=== PATIENT | male | born 1965 | race Caucasian/White ===

== ENCOUNTER 2017-08-06 09:54 | Inpatient (IN) | payer MEDICAID ==
[2017-08-06] VITALS (56 sets, daily range): BP systolic 68–110; BP diastolic 31–64
[~2017-08-06] VITALS: Ht 172.7 cm; Wt 69.6 kg
[2017-08-06] MEDS ORDERED: INSULIN REGULAR (HUMULIN R) 300UNITS/3ML SUBCUT ONE (10:15)
[2017-08-06] MEDS ORDERED: VANCOMYCIN 1 G PREMIX 200 ML IV ONE (10:15)
[2017-08-06] MEDS ORDERED: PIPERACILLIN/TAZ 3.375G PREMIX 50 ML IV ONE (10:15)
[2017-08-06] MEDS ORDERED: SODIUM CHLORIDE 0.9% 1000ML BAG (SEPSIS BOLUS) IV ONE (10:15)
[2017-08-06 10:54] LABS: BG BASE EXCESS -33.7 mmol/L (-2.0-2.0); BG CARBOXYHEMOGLOBIN 0.9 % (0.5-1.5); BG DEOXYHEMOGLOBIN 1.4 % (0.0-5.0); BG FRACTION INSPIRED OXYGEN 28; BG HCO3 ACT 1.4 mmol/L (22.0-26.0); BG METHEMOGLOBIN 0.3 % (0.0-1.5); BG OXYGEN SATURATION 98.6 % (92.0-98.5); BG OXYHEMOGLOBIN 97.4 % (94.0-97.0); BG PCO2 10.8 mmHg (35.0-45.0); BG PH 6.734 (7.350-7.450); BG PO2 170.5 mmHg (75.0-100.0); BG SAMPLE SITE RIGHT BRACHIAL; BG TOTAL HEMOGLOBIN 14.4 g/dL (12.0-18.0); BG VENT MODE NASAL CANNULA
[2017-08-06] MEDS ORDERED: SODIUM BICARBONATE 8.4% 1 MEQ/ML 50ML SYR IV ONE ×3 (11:00→11:45)
[2017-08-06 11:04] LABS: HEMOGLOBIN. 14.7 g/dL (14.0-18.0); MEAN CORPUSCULAR HEMOGLOBIN 28.7 pg (28.0-32.0); MEAN CORPUSCULAR VOLUME 91.8 fL (80.0-94.0); MEAN PLATELET VOLUME 9.1 fl (7.4-10.4); PLATELET 183 x1000/uL (130-400); RED BLOOD CELL COUNT 5.12 mill/uL (4.7-6.1); RED CELL DISTRIBUTION WIDTH 17.2 % (11.6-14.6)
[2017-08-06 11:05] LABS: CHLORIDE 90 mEq/L (98-107)
[2017-08-06 11:10] LABS: ETHANOL BLOOD < 10 mg/dL
[2017-08-06] MEDS ORDERED: LORAZEPAM 2MG/ML CPJ IV ONE (11:15)
[2017-08-06] MEDS ORDERED: LORAZEPAM 2MG/ML CPJ ONE (11:21)
[2017-08-06 11:22] LABS: PARTIAL THROMBOPLASTIN TIME 38.1 sec (23.4-31.0); PROTHROMBIN TIME 10.3 sec (9.4-11.6)
[2017-08-06 11:29] LABS: PLATELET ESTIMATE NORMAL
[2017-08-06] MEDS ORDERED: VECURONIUM BROMIDE 10 MG/VIAL IV ONE ×2 (11:30→14:19)
[2017-08-06] MEDS ORDERED: ETOMIDATE 2MG/ML 10ML VIAL IV ONE ×2 (11:30→14:19)
[2017-08-06] MEDS ORDERED: PROPOFOL 200MG/20ML VIAL IV ONE (11:30)
[2017-08-06] MEDS ORDERED: SODIUM CHLORIDE 0.9% 1,000 ML IV STA (11:42)
[2017-08-06] MEDS ORDERED: ALBUTEROL (0.083%) 2.5MG/3ML NEB HHN ONE (11:45)
[2017-08-06] MEDS ORDERED: MIDAZOLAM HCL 50 MG in DEXTROSE 5% WATER 40 ML IV ONE ×2 (11:45→12:30)
[2017-08-06] MEDS ORDERED: SODIUM POLYSTYRENE SULFONATE 15 G/60 ML BOT NG ONE (11:45)
[2017-08-06] MEDS ORDERED: NOREPINEPHRINE 4 MG in DEXT 5% WATER 246 ML IV ONE ×2 (11:45→12:15)
[2017-08-06] MEDS ORDERED: INSULIN REGULAR (DRIP) 100 UNITS in SODIUM CHLORIDE 0.9% 100 ML IV NR (12:00)
[2017-08-06 12:05] LABS: BETA HYDROXYBUTYRATE 17.3 mMol/L (0.0-0.3)
[2017-08-06 12:23] LABS: CLARITY URINE CLEAR (CLEAR); COLOR URINE YELLOW (YELLOW); KETONES URINE 2+ (NEGATIVE); LEUKOCYTE ESTERASE URINE NEGATIVE (NEGATIVE); NITRITE URINE NEGATIVE (NEGATIVE); OCCULT BLOOD URINE 2+ (NEGATIVE); PROTEIN URINE 2+ (NEGATIVE); SPECIFIC GRAVITY URINE 1.021 (1.005-1.030)
[2017-08-06 12:30] LABS: BG CARBOXYHEMOGLOBIN 0.3 % (0.5-1.5); BG DEOXYHEMOGLOBIN 0.7 % (0.0-5.0); BG METHEMOGLOBIN 0.3 % (0.0-1.5); BG OXYGEN SATURATION 99.3 % (92.0-98.5); BG OXYHEMOGLOBIN 98.7 % (94.0-97.0); BG PCO2 40.1 mmHg (35.0-45.0); BG PH < 6.680 (7.350-7.450); BG PO2 594.2 mmHg (75.0-100.0); BG SAMPLE SITE RIGHT BRACHIAL; BG TIDAL VOLUME(mL) 500 mL; BG TOTAL HEMOGLOBIN 13.8 g/dL (12.0-18.0); BG VENT MODE VENT - A/C; BG VENT RATE 10 set
[2017-08-06 12:33] LABS: *BENZODIAZEPINES SCREEN URINE NEGATIVE (NEGATIVE)
[2017-08-06 12:34] LABS: *AMPHETAMINES SCREEN URINE NEGATIVE (NEGATIVE); CANNABINOID URINE SCREEN NEGATIVE (NEGATIVE); OPIATES URINE SCREEN NEGATIVE (NEGATIVE); PHENCYCLIDINE URINE SCREEN NEGATIVE (NEGATIVE)
[2017-08-06 12:35] LABS: METHADONE URINE SCREEN NEGATIVE (NEGATIVE)
[2017-08-06 12:37] LABS: *BARBITURATES SCREEN URINE NEGATIVE (NEGATIVE); *COCAINE SCREEN URINE NEGATIVE (NEGATIVE)
[2017-08-06] MEDS ORDERED: IPRATROPIUM/ALBUTEROL 0.5-3(2.5)MG/3ML NEB INH PRN (12:45)
[2017-08-06] MEDS ORDERED: MAGNESIUM/ALUMINUM HYDROXIDE/SIMETHICONE 30ML UDC PO PRN (12:45)
[2017-08-06] MEDS ORDERED: CLONIDINE 0.1MG TABLET PO PRN (12:45)
[2017-08-06] MEDS ORDERED: INSULIN REGULAR (DRIP) 100 UNITS in SODIUM CHLORIDE 0.9% 100 ML IV SCH (12:45)
[2017-08-06] MEDS ORDERED: GUAIFENESIN 200MG/10ML SUGAR FREE UDC PO PRN (12:45)
[2017-08-06] MEDS ORDERED: LEVETIRACETAM 500MG PREMIX 100 ML IV ONE (12:45)
[2017-08-06] MEDS ORDERED: HYDROCODONE/ACETAMINOPHEN 5/325MG TABLET PO PRN (12:45)
[2017-08-06] MEDS ORDERED: LORAZEPAM 2MG/ML CPJ IV PRN (12:45)
[2017-08-06] MEDS ORDERED: ONDANSETRON HCL 4MG/2ML VIAL IV PRN (12:45)
[2017-08-06] MEDS ORDERED: DOCUSATE SODIUM 100MG CAPSULE PO PRN (12:45)
[2017-08-06] MEDS ORDERED: ACETAMINOPHEN 325MG TABLET PO PRN (12:45)
[2017-08-06] MEDS ORDERED: MORPHINE SULFATE 4 MG/ML CPJ (NOT FOR IM USE) IV PRN (12:49)
[2017-08-06] MEDS ORDERED: SODIUM BICARBONATE 4% (2.4MEQ) 5ML VIAL IV ONE ×2 (13:16→18:24)
[2017-08-06] MEDS ORDERED: LIDOCAINE HCL/PF 1% 10 MG/ML 5ML VIAL ONE (13:16)
[2017-08-06] MEDS: INSULIN REGULAR (DRIP) 100 UNITS in SODIUM CHLORIDE 0.9% 100 ML IV SCH ×2 (14:25→22:47)
[2017-08-06] MEDS ORDERED: SODIUM CHLORIDE 0.45% 1,000 ML IV SCH (14:30)
[2017-08-06] MEDS ORDERED: DEXTROSE 50% WATER 50ML SYRINGE IV PRN ×2 (14:45)
[2017-08-06] MEDS: BLOOD SUGAR DIAGNOSTIC STRIP TEST SCH ×9 (14:46→23:45)
[2017-08-06] MEDS ORDERED: PANTOPRAZOLE SODIUM 40 MG/VIAL IV ONE (15:00)
[2017-08-06] MEDS ORDERED: ENOXAPARIN 30MG/0.3ML SYR SUBCUT SCH (15:00)
[2017-08-06] MEDS ORDERED: PROPOFOL 10MG/ML 100ML 100 ML IV PRN (15:00)
[2017-08-06 15:37] LABS: BG BASE EXCESS -28.8 mmol/L (-2.0-2.0); BG CARBOXYHEMOGLOBIN 0.1 % (0.5-1.5); BG DEOXYHEMOGLOBIN 0.9 % (0.0-5.0); BG FRACTION INSPIRED OXYGEN 70; BG METHEMOGLOBIN 0.1 % (0.0-1.5); BG OXYGEN SATURATION 99.1 % (92.0-98.5); BG OXYHEMOGLOBIN 98.9 % (94.0-97.0); BG PCO2 23.1 mmHg (35.0-45.0); BG PO2 330.7 mmHg (75.0-100.0); BG SAMPLE SITE LEFT BRACHIAL; BG TIDAL VOLUME(mL) 550 mL; BG TOTAL HEMOGLOBIN 14.4 g/dL (12.0-18.0); BG VENT MODE VENT - A/C; BG VENT RATE 28 set
[2017-08-06] MEDS ORDERED: LEVOFLOXACIN 500MG PREMIX 100 ML IV NR (16:00)
[2017-08-06] MEDS ORDERED: SODIUM BICARBONATE 8.4% 1 MEQ/ML 50ML SYR IV NR ×3 (16:00→18:15)
[2017-08-06] MEDS ORDERED: INSULIN REGULAR (HUMULIN R) 300UNITS/3ML IV NR (16:45)
[2017-08-06] MEDS: PANTOPRAZOLE SODIUM 40 MG/VIAL IV SCH (16:59)
[2017-08-06] MEDS ORDERED: SODIUM BICARBONATE 5MEQ SYR 100 MEQ in DEXTROSE 5% WATER 1,000 ML IV SCH (17:00)
[2017-08-06] MEDS: CEFEPIME 2,000 MG in DEXT 5% WATER 100 ML IV SCH (17:01)
[2017-08-06] MEDS ORDERED: PHENYLEPHRINE 20 MG in DEXT 5% WATER 248 ML IV PRN (17:30)
[2017-08-06 17:54] LABS: CHLORIDE 98 mEq/L (98-107)
[2017-08-06] MEDS ORDERED: METRONIDAZOLE 500 MG PREMIX 100 ML IV SCH (18:00)
[2017-08-06] MEDS ORDERED: LIDOCAINE HCL/PF 1% 10 MG/ML 30ML VIAL ONE (18:23)
[2017-08-06] MEDS ORDERED: POTASSIUM CHLORIDE INJ 40 MEQ in DEXT 5% WATER 250 ML IV ONE (18:45)
[2017-08-06] MEDS ORDERED: NON FORMULARY PATIENT HOME MED EA XX SCH (19:00)
[2017-08-06] MEDS: NOREPINEPHRINE 16 MG in DEXT 5% WATER 234 ML IV PRN (19:03)
[2017-08-06 19:08] LABS: BG BASE EXCESS -24.6 mmol/L (-2.0-2.0); BG CARBOXYHEMOGLOBIN 0.9 % (0.5-1.5); BG DEOXYHEMOGLOBIN 2.7 % (0.0-5.0); BG FRACTION INSPIRED OXYGEN 30; BG HCO3 ACT 5.8 mmol/L (22.0-26.0); BG METHEMOGLOBIN 0.2 % (0.0-1.5); BG OXYGEN SATURATION 97.3 % (92.0-98.5); BG OXYHEMOGLOBIN 96.2 % (94.0-97.0); BG PH 6.984 (7.350-7.450); BG PO2 108.1 mmHg (75.0-100.0); BG SAMPLE SITE LEFT BRACHIAL; BG TIDAL VOLUME(mL) 550 mL; BG TOTAL HEMOGLOBIN 14.4 g/dL (12.0-18.0); BG VENT MODE VENT - A/C; BG VENT RATE 28 set
[2017-08-06] MEDS: IPRATROPIUM/ALBUTEROL 0.5-3(2.5)MG/3ML NEB HHN SCH (19:55)
[2017-08-06] MEDS ORDERED: POTASSIUM CHLORIDE INJ 40 MEQ in DEXT 5% WATER 250 ML IV NR (20:00)
[2017-08-06] MEDS ORDERED: MAGNESIUM 2 G PREMIX 50 ML IV NR (20:00)
[2017-08-06] MEDS: KCL 20MEQ/100ML PREMIX 100 ML IV NR ×2 (20:27→22:49)
[2017-08-06] MEDS: SODIUM BICARBONATE 150 MEQ in WATER FOR INJECTION,STERILE 850 ML IV SCH (20:31)
[2017-08-06] MEDS: VASOPRESSIN 10 UNIT in SODIUM CHLORIDE 0.9% 99.5 ML IV PRN (20:58)
[2017-08-06] MEDS ORDERED: NA PHOS,M-B/NA PHOS,DI-BA ENEMA 118ML PR PRN (21:00)
[2017-08-06] MEDS: PHENYLEPHRINE 80 MG in DEXT 5% WATER 492 ML IV PRN (21:19)
[2017-08-07] VITALS (94 sets, daily range): BP systolic 77–115; BP diastolic 36–71
[2017-08-07] MEDS: METRONIDAZOLE 500 MG PREMIX 100 ML IV SCH ×4 (00:05→19:58)
[2017-08-07] MEDS: VASOPRESSIN 10 UNIT in SODIUM CHLORIDE 0.9% 99.5 ML IV PRN ×5 (00:26→19:38)
[2017-08-07] MEDS: BLOOD SUGAR DIAGNOSTIC STRIP TEST SCH ×24 (00:45→23:51)
[2017-08-07] MEDS: KCL 20MEQ/100ML PREMIX 100 ML IV NR ×2 (01:10→02:51)
[2017-08-07 01:17] LABS: CHLORIDE 101 mEq/L (98-107)
[2017-08-07] MEDS: NOREPINEPHRINE 16 MG in DEXT 5% WATER 234 ML IV PRN ×3 (01:46→23:52)
[2017-08-07] MEDS: IPRATROPIUM/ALBUTEROL 0.5-3(2.5)MG/3ML NEB HHN SCH ×3 (01:46→20:35)
[2017-08-07] MEDS ORDERED: KCL 20MEQ/100ML PREMIX 100 ML IV ONE ×3 (02:15)
[2017-08-07] MEDS: SODIUM BICARBONATE 150 MEQ in WATER FOR INJECTION,STERILE 850 ML IV SCH (04:08)
[2017-08-07] MEDS: KCL 20MEQ/100ML PREMIX 100 ML IV SCH ×4 (04:09→22:14)
[2017-08-07] MEDS: INSULIN REGULAR (DRIP) 100 UNITS in SODIUM CHLORIDE 0.9% 100 ML IV SCH ×3 (05:08→19:57)
[2017-08-07 06:08] LABS: CHLORIDE 102 mEq/L (98-107)
[2017-08-07 06:21] LABS: CREATINE KINASE 279 IU/L (39-308)
[2017-08-07 06:22] LABS: T4 FREE 1.27 ng/dL (0.76-1.46)
[2017-08-07 06:23] LABS: HDL CHOLESTEROL 43 mg/dL (40-59); LDL CHOLESTEROL 41 mg/dL (5-100)
[2017-08-07 06:27] LABS: PHOSPHORUS < 0.1 mg/dL (2.5-4.9)
[2017-08-07] MEDS: PHENYLEPHRINE 80 MG in DEXT 5% WATER 492 ML IV PRN (06:30)
[2017-08-07] MEDS ORDERED: WATER IV NR (08:30)
[2017-08-07] MEDS ORDERED: POTASSIUM PHOS M BASIC D BASIC IV NR (08:30)
[2017-08-07] MEDS ORDERED: DEXT 5% IV NR (08:30)
[2017-08-07] MEDS ORDERED: ASPIRIN 81MG EC TABLET PO SCH (09:00)
[2017-08-07] MEDS: DEXT 5%/0.45% NACL KCL 20MEQ/L 1,000 ML IV SCH ×2 (09:10→15:26)
[2017-08-07 09:13] LABS: BG BASE EXCESS 7.9 mmol/L (-2.0-2.0); BG CARBOXYHEMOGLOBIN 0.3 % (0.5-1.5); BG DEOXYHEMOGLOBIN 4.7 % (0.0-5.0); BG FRACTION INSPIRED OXYGEN 30; BG HCO3 ACT 28.9 mmol/L (22.0-26.0); BG METHEMOGLOBIN 0.3 % (0.0-1.5); BG OXYGEN SATURATION 95.3 % (92.0-98.5); BG OXYHEMOGLOBIN 94.7 % (94.0-97.0); BG PCO2 28.7 mmHg (35.0-45.0); BG PH 7.621 (7.350-7.450); BG PO2 60.1 mmHg (75.0-100.0); BG SAMPLE SITE RIGHT BRACHIAL; BG TIDAL VOLUME(mL) 550 mL; BG VENT MODE VENT - A/C; BG VENT RATE 28 set
[2017-08-07] MEDS: PANTOPRAZOLE SODIUM 40 MG/VIAL IV SCH (09:17)
[2017-08-07] MEDS ORDERED: ALBUMIN HUMAN 25GM/100ML (25%) IV NR (10:00)
[2017-08-07 10:13] LABS: HEMATOCRIT. 30.8 % (42.0-52.0); HEMOGLOBIN. 11.1 g/dL (14.0-18.0); MEAN CORPUSCULAR HEMOGLOBIN 28.9 pg (28.0-32.0); MEAN CORPUSCULAR VOLUME 80.4 fL (80.0-94.0); RED BLOOD CELL COUNT 3.84 mill/uL (4.7-6.1); RED CELL DISTRIBUTION WIDTH 19.2 % (11.6-14.6)
[2017-08-07 10:51] LABS: NUCLEATED RED BLOOD CELLS 1 /100 WBC
[2017-08-07 10:52] LABS: PLATELET ESTIMATE MARKEDLY DECREASED
[2017-08-07 10:56] LABS: PLATELET 32 x1000/uL (130-400)
[2017-08-07] MEDS ORDERED: LEVOFLOXACIN 250MG PREMIX 50 ML IV SCH (12:00)
[2017-08-07 12:14] LABS: BG BASE EXCESS 2.7 mmol/L (-2.0-2.0); BG CARBOXYHEMOGLOBIN 0.3 % (0.5-1.5); BG DEOXYHEMOGLOBIN 2.9 % (0.0-5.0); BG FRACTION INSPIRED OXYGEN 45; BG HCO3 ACT 24.5 mmol/L (22.0-26.0); BG METHEMOGLOBIN 0.1 % (0.0-1.5); BG OXYGEN SATURATION 97.1 % (92.0-98.5); BG OXYHEMOGLOBIN 96.7 % (94.0-97.0); BG PH 7.545 (7.350-7.450); BG PO2 91.7 mmHg (75.0-100.0); BG SAMPLE SITE RIGHT BRACHIAL; BG TIDAL VOLUME(mL) 550 mL; BG TOTAL HEMOGLOBIN 11.6 g/dL (12.0-18.0); BG VENT MODE VENT - A/C; BG VENT RATE 18 set
[2017-08-07] MEDS: FENTANYL CITRATE/PF 500 MCG in SODIUM CHLORIDE 0.9% 40 ML IV PRN ×2 (12:32→23:56)
[2017-08-07] MEDS: MIDAZOLAM HCL 50 MG in DEXTROSE 5% WATER 40 ML IV PRN ×2 (12:32→19:38)
[2017-08-07 14:36] LABS: PHOSPHORUS 0.5 mg/dL (2.5-4.9)
[2017-08-07] MEDS ORDERED: MAGNESIUM 2 G PREMIX 50 ML IV NR (15:30)
[2017-08-07] MEDS: CEFEPIME 2,000 MG in DEXT 5% WATER 100 ML IV SCH (16:23)
[2017-08-07] MEDS ORDERED: SODIUM PHOS,M-BASIC-D-BASIC 30 MM in DEXT 5% WATER 500 ML IV NR (17:30)
[2017-08-07 19:28] LABS: PHOSPHORUS 1.4 mg/dL (2.5-4.9)
[2017-08-07 20:22] LABS: BG BASE EXCESS 3.7 mmol/L (-2.0-2.0); BG CARBOXYHEMOGLOBIN 0.3 % (0.5-1.5); BG DEOXYHEMOGLOBIN 3.5 % (0.0-5.0); BG FRACTION INSPIRED OXYGEN 45; BG HCO3 ACT 25.9 mmol/L (22.0-26.0); BG METHEMOGLOBIN 0.1 % (0.0-1.5); BG OXYGEN SATURATION 96.5 % (92.0-98.5); BG OXYHEMOGLOBIN 96.1 % (94.0-97.0); BG PCO2 30.9 mmHg (35.0-45.0); BG PH 7.541 (7.350-7.450); BG PO2 79.1 mmHg (75.0-100.0); BG SAMPLE SITE RIGHT BRACHIAL; BG TIDAL VOLUME(mL) 550 mL; BG TOTAL HEMOGLOBIN 10.8 g/dL (12.0-18.0); BG VENT MODE VENT - A/C; BG VENT RATE 12 set
[2017-08-07] MEDS ORDERED: KCL 20MEQ/100ML PREMIX 100 ML IV SCH ×2 (22:00)
[2017-08-07] MEDS: DEXT 5%/0.45% NACL KCL 40MEQ/L 1,000 ML IV SCH (22:13)
[2017-08-08] VITALS (92 sets, daily range): BP systolic 81–132; BP diastolic 56–94
[2017-08-08] MEDS: VASOPRESSIN 10 UNIT in SODIUM CHLORIDE 0.9% 99.5 ML IV PRN ×4 (00:25→15:54)
[2017-08-08] MEDS: INSULIN REGULAR (DRIP) 100 UNITS in SODIUM CHLORIDE 0.9% 100 ML IV SCH ×3 (00:26→15:52)
[2017-08-08] MEDS: KCL 20MEQ/100ML PREMIX 100 ML IV SCH ×3 (00:39→10:27)
[2017-08-08] MEDS: BLOOD SUGAR DIAGNOSTIC STRIP TEST SCH ×23 (00:40→23:07)
[2017-08-08] MEDS ORDERED: POTASSIUM PHOS,M-BASIC-D-BASIC 30 MMOL in DEXT 5% WATER 500 ML IV NR (02:00)
[2017-08-08] MEDS: IPRATROPIUM/ALBUTEROL 0.5-3(2.5)MG/3ML NEB HHN SCH ×4 (02:01→20:14)
[2017-08-08] MEDS: METRONIDAZOLE 500 MG PREMIX 100 ML IV SCH ×3 (03:14→20:54)
[2017-08-08] MEDS: MIDAZOLAM HCL 50 MG in DEXTROSE 5% WATER 40 ML IV PRN ×2 (03:15→14:00)
[2017-08-08] MEDS: DEXT 5%/0.45% NACL KCL 40MEQ/L 1,000 ML IV SCH ×3 (04:54→23:12)
[2017-08-08 05:41] LABS: MEAN CORPUSCULAR VOLUME 77.9 fL (80.0-94.0); MEAN PLATELET VOLUME 8.2 fl (7.4-10.4); RED BLOOD CELL COUNT 3.73 mill/uL (4.7-6.1); RED CELL DISTRIBUTION WIDTH 20.1 % (11.6-14.6)
[2017-08-08 06:12] LABS: CHLORIDE 98 mEq/L (98-107)
[2017-08-08 06:18] LABS: PHOSPHORUS 2.2 mg/dL (2.5-4.9)
[2017-08-08] MEDS ORDERED: POTASSIUM CHLORIDE 20MEQ/PACKET NG SCH (06:45)
[2017-08-08] MEDS ORDERED: POTASSIUM CHLORIDE INJ 40 MEQ in DEXT 5% WATER 250 ML IV ONE (07:15)
[2017-08-08 07:18] LABS: PLATELET 25 x1000/uL (130-400)
[2017-08-08 07:19] LABS: HEMOGLOBIN. 10.6 g/dL (14.0-18.0)
[2017-08-08 07:20] LABS: MEAN CORPUSCULAR HEMOGLOBIN 28.4 pg (28.0-32.0)
[2017-08-08] MEDS ORDERED: POTASSIUM PHOS,M-BASIC-D-BASIC 30 MMOL in DEXT 5% WATER 500 ML IV SCH (08:00)
[2017-08-08 08:59] LABS: BG BASE EXCESS 3.7 mmol/L (-2.0-2.0); BG CARBOXYHEMOGLOBIN 0.2 % (0.5-1.5); BG DEOXYHEMOGLOBIN 1.9 % (0.0-5.0); BG FRACTION INSPIRED OXYGEN 50; BG METHEMOGLOBIN 0.3 % (0.0-1.5); BG OXYGEN SATURATION 98.1 % (92.0-98.5); BG OXYHEMOGLOBIN 97.6 % (94.0-97.0); BG PCO2 36.2 mmHg (35.0-45.0); BG PH 7.491 (7.350-7.450); BG PO2 152.2 mmHg (75.0-100.0); BG SAMPLE SITE RIGHT RADIAL; BG TIDAL VOLUME(mL) 550 mL; BG TOTAL HEMOGLOBIN 10.5 g/dL (12.0-18.0); BG VENT MODE VENT - A/C; BG VENT RATE 12 set
[2017-08-08 09:25] LABS: PLATELET ESTIMATE MARKEDLY DECREASED
[2017-08-08] MEDS ORDERED: ALBUMIN HUMAN 25GM/100ML (25%) IV SCH (09:30)
[2017-08-08] MEDS: FENTANYL CITRATE/PF 500 MCG in SODIUM CHLORIDE 0.9% 40 ML IV PRN ×2 (11:41→22:17)
[2017-08-08] MEDS: CEFEPIME 2,000 MG in DEXT 5% WATER 100 ML IV SCH (18:45)
[2017-08-08] MEDS ORDERED: CALCIUM GLUCONATE 1,000 MG in DEXT 5% WATER 90 ML IV NR (19:00)
[2017-08-08 19:50] LABS: PHOSPHORUS 4.8 mg/dL (2.5-4.9)
[2017-08-09] VITALS (79 sets, daily range): BP systolic 86–119; BP diastolic 53–86
[2017-08-09] MEDS: VASOPRESSIN 10 UNIT in SODIUM CHLORIDE 0.9% 99.5 ML IV PRN (00:06)
[2017-08-09] MEDS: BLOOD SUGAR DIAGNOSTIC STRIP TEST SCH ×15 (00:06→22:27)
[2017-08-09] MEDS: IPRATROPIUM/ALBUTEROL 0.5-3(2.5)MG/3ML NEB HHN SCH ×4 (01:46→20:41)
[2017-08-09] MEDS: MIDAZOLAM HCL 50 MG in DEXTROSE 5% WATER 40 ML IV PRN ×3 (03:39→20:08)
[2017-08-09] MEDS: DEXT 5%/0.45% NACL KCL 40MEQ/L 1,000 ML IV SCH ×2 (03:40→10:52)
[2017-08-09] MEDS: METRONIDAZOLE 500 MG PREMIX 100 ML IV SCH ×3 (04:27→20:22)
[2017-08-09 05:57] LABS: HEMATOCRIT. 26.8 % (42.0-52.0); HEMOGLOBIN. 9.7 g/dL (14.0-18.0); MEAN CORPUSCULAR VOLUME 80.4 fL (80.0-94.0); MEAN PLATELET VOLUME 8.5 fl (7.4-10.4); RED BLOOD CELL COUNT 3.33 mill/uL (4.7-6.1); RED CELL DISTRIBUTION WIDTH 21.1 % (11.6-14.6)
[2017-08-09 06:00] LABS: PLATELET 23 x1000/uL (130-400)
[2017-08-09] MEDS: FENTANYL CITRATE/PF 500 MCG in SODIUM CHLORIDE 0.9% 40 ML IV PRN ×2 (06:04→11:52)
[2017-08-09] MEDS: NOREPINEPHRINE 16 MG in DEXT 5% WATER 234 ML IV PRN (06:06)
[2017-08-09 06:08] LABS: PHOSPHORUS 3.9 mg/dL (2.5-4.9)
[2017-08-09] MEDS: INSULIN REGULAR (DRIP) 100 UNITS in SODIUM CHLORIDE 0.9% 100 ML IV SCH (08:13)
[2017-08-09 08:58] LABS: BG BASE EXCESS -3.4 mmol/L (-2.0-2.0); BG CARBOXYHEMOGLOBIN 0.3 % (0.5-1.5); BG DEOXYHEMOGLOBIN 2.9 % (0.0-5.0); BG FRACTION INSPIRED OXYGEN 40; BG HCO3 ACT 20.8 mmol/L (22.0-26.0); BG METHEMOGLOBIN 0.1 % (0.0-1.5); BG OXYGEN SATURATION 97.1 % (92.0-98.5); BG OXYHEMOGLOBIN 96.7 % (94.0-97.0); BG PCO2 34.1 mmHg (35.0-45.0); BG PH 7.403 (7.350-7.450); BG PO2 101.6 mmHg (75.0-100.0); BG SAMPLE SITE RIGHT RADIAL; BG TIDAL VOLUME(mL) 550 mL; BG TOTAL HEMOGLOBIN 9.8 g/dL (12.0-18.0); BG VENT MODE VENT - A/C; BG VENT RATE 12 set
[2017-08-09 09:12] LABS: PLATELET ESTIMATE MARKEDLY DECREASED
[2017-08-09] MEDS ORDERED: MAGNESIUM 4 G PREMIX 100 ML IV NR (10:00)
[2017-08-09] MEDS: INSULIN LISPRO 100 UNITS/ML SUBCUT SCH ×3 (14:00→22:32)
[2017-08-09] MEDS ORDERED: DEXTROSE 50% WATER 50ML SYRINGE IV PRN (14:00)
[2017-08-09] MEDS: ZINC SULFATE 220 MG ( 50 ) CAPSULE NG SCH (15:47)
[2017-08-09] MEDS: ASCORBIC ACID 250 MG TABLET NG SCH (15:47)
[2017-08-09] MEDS: INSULIN GLARGINE UD 100 UNITS/ML SYR SUBCUT SCH (15:49)
[2017-08-09] MEDS: CEFEPIME 2,000 MG in DEXT 5% WATER 100 ML IV SCH (15:50)
[2017-08-09] MEDS: FENTANYL CITRATE/PF 1,000 MCG in SODIUM CHLORIDE 0.9% 80 ML IV PRN (18:36)
[2017-08-09 20:44] LABS: PHOSPHORUS 3.1 mg/dL (2.5-4.9)
[2017-08-09] MEDS ORDERED: DEXT 5%/0.9% NACL 1,000 ML IV SCH (21:29)
[2017-08-09] MEDS ORDERED: SODIUM POLYSTYRENE SULFONATE 15 G/60 ML BOT PO NR (21:30)
[2017-08-09] MEDS ORDERED: FUROSEMIDE 20MG/2ML VIAL IVP NR (21:30)
[2017-08-09] MEDS ORDERED: SODIUM BICARBONATE 8.4% 1 MEQ/ML 50ML SYR IV NR (21:30)
[2017-08-10] VITALS (81 sets, daily range): BP systolic 73–121; BP diastolic 45–84
[2017-08-10] MEDS: IPRATROPIUM/ALBUTEROL 0.5-3(2.5)MG/3ML NEB HHN SCH ×4 (02:17→20:27)
[2017-08-10] MEDS: BLOOD SUGAR DIAGNOSTIC STRIP TEST SCH ×6 (02:31→22:14)
[2017-08-10] MEDS: INSULIN LISPRO 100 UNITS/ML SUBCUT SCH ×6 (02:36→22:25)
[2017-08-10] MEDS: FENTANYL CITRATE/PF 1,000 MCG in SODIUM CHLORIDE 0.9% 80 ML IV PRN (02:46)
[2017-08-10] MEDS: METRONIDAZOLE 500 MG PREMIX 100 ML IV SCH ×3 (04:00→20:39)
[2017-08-10] MEDS: MIDAZOLAM HCL 50 MG in DEXTROSE 5% WATER 40 ML IV PRN (06:21)
[2017-08-10 06:35] LABS: HEMATOCRIT. 28.4 % (42.0-52.0); MEAN CORPUSCULAR VOLUME 82.8 fL (80.0-94.0); MEAN PLATELET VOLUME 9.4 fl (7.4-10.4); RED BLOOD CELL COUNT 3.43 mill/uL (4.7-6.1); RED CELL DISTRIBUTION WIDTH 21.4 % (11.6-14.6)
[2017-08-10 07:01] LABS: PHOSPHORUS 3.4 mg/dL (2.5-4.9)
[2017-08-10 07:26] LABS: BG BASE EXCESS 4.2 mmol/L (-2.0-2.0); BG CARBOXYHEMOGLOBIN 0.2 % (0.5-1.5); BG HCO3 ACT 27.6 mmol/L (22.0-26.0); BG METHEMOGLOBIN 0.3 % (0.0-1.5); BG OXYHEMOGLOBIN 97.5 % (94.0-97.0); BG PCO2 36.5 mmHg (35.0-45.0); BG PH 7.497 (7.350-7.450); BG PO2 127.1 mmHg (75.0-100.0); BG SAMPLE SITE RIGHT RADIAL; BG TIDAL VOLUME(mL) 550 mL; BG TOTAL HEMOGLOBIN 9.4 g/dL (12.0-18.0); BG VENT MODE VENT - A/C; BG VENT RATE 12 set
[2017-08-10] MEDS ORDERED: DEXT 5%/0.45% NACL 1000ML 1,000 ML IV SCH ×2 (07:45→08:00)
[2017-08-10] MEDS: NOREPINEPHRINE 16 MG in DEXT 5% WATER 234 ML IV PRN (08:03)
[2017-08-10 08:06] LABS: PLATELET 30 x1000/uL (130-400)
[2017-08-10] MEDS: ZINC SULFATE 220 MG ( 50 ) CAPSULE NG SCH (09:33)
[2017-08-10] MEDS: PANTOPRAZOLE SODIUM 40 MG/VIAL IV SCH (09:33)
[2017-08-10] MEDS: ASCORBIC ACID 250 MG TABLET NG SCH ×2 (09:34→17:10)
[2017-08-10] MEDS: INSULIN GLARGINE UD 100 UNITS/ML SYR SUBCUT SCH (10:26)
[2017-08-10 11:17] LABS: BG BASE EXCESS 4.4 mmol/L (-2.0-2.0); BG CPAP (cmH2O) 0 cm(H2O); BG DEOXYHEMOGLOBIN 3.9 % (0.0-5.0); BG HCO3 ACT 28.1 mmol/L (22.0-26.0); BG OXYGEN SATURATION 96.1 % (92.0-98.5); BG OXYHEMOGLOBIN 96.1 % (94.0-97.0); BG PCO2 38.6 mmHg (35.0-45.0); BG PO2 89.8 mmHg (75.0-100.0); BG SAMPLE SITE RIGHT RADIAL; BG VENT MODE VENT - CPAP
[2017-08-10 12:27] LABS: NUCLEATED RED BLOOD CELLS 1 /100 WBC; PLATELET ESTIMATE MARKEDLY DECREASED
[2017-08-10] MEDS: CEFEPIME 2,000 MG in DEXT 5% WATER 100 ML IV SCH (16:50)
[2017-08-10] MEDS: DEXTROSE 5% WATER 1,000 ML IV SCH (19:17)
[2017-08-11] VITALS (42 sets, daily range): BP systolic 88–113; BP diastolic 50–73
[2017-08-11] MEDS: BLOOD SUGAR DIAGNOSTIC STRIP TEST SCH ×6 (01:59→21:21)
[2017-08-11] MEDS: INSULIN LISPRO 100 UNITS/ML SUBCUT SCH ×6 (02:01→21:24)
[2017-08-11] MEDS: IPRATROPIUM/ALBUTEROL 0.5-3(2.5)MG/3ML NEB HHN SCH ×4 (02:25→20:18)
[2017-08-11] MEDS: METRONIDAZOLE 500 MG PREMIX 100 ML IV SCH ×3 (03:23→19:39)
[2017-08-11 06:47] LABS: HEMATOCRIT. 29.2 % (42.0-52.0); HEMOGLOBIN. 10.2 g/dL (14.0-18.0); MEAN CORPUSCULAR HEMOGLOBIN 29.1 pg (28.0-32.0); MEAN CORPUSCULAR VOLUME 83.3 fL (80.0-94.0); MEAN PLATELET VOLUME 8.8 fl (7.4-10.4); RED BLOOD CELL COUNT 3.51 mill/uL (4.7-6.1); RED CELL DISTRIBUTION WIDTH 21.3 % (11.6-14.6)
[2017-08-11 06:51] LABS: PHOSPHORUS 4.2 mg/dL (2.5-4.9)
[2017-08-11 07:26] LABS: PLATELET 37 x1000/uL (130-400)
[2017-08-11] MEDS: ASCORBIC ACID 250 MG TABLET NG SCH ×2 (09:20→17:15)
[2017-08-11] MEDS: PANTOPRAZOLE SODIUM 40 MG/VIAL IV SCH (09:20)
[2017-08-11] MEDS: ZINC SULFATE 220 MG ( 50 ) CAPSULE NG SCH (09:20)
[2017-08-11] MEDS: DEXTROSE 5% WATER 1,000 ML IV SCH ×2 (09:32→21:53)
[2017-08-11] MEDS: INSULIN GLARGINE UD 100 UNITS/ML SYR SUBCUT SCH (10:24)
[2017-08-11 13:00] LABS: PLATELET ESTIMATE MARKEDLY DECREASED
[2017-08-11 13:52] LABS: AMMONIA 32 uMol/L (<32)
[2017-08-11] MEDS: CEFEPIME 2,000 MG in DEXT 5% WATER 100 ML IV SCH (17:16)
[2017-08-12] VITALS (22 sets, daily range): BP systolic 94–126; BP diastolic 60–83
[2017-08-12] MEDS: IPRATROPIUM/ALBUTEROL 0.5-3(2.5)MG/3ML NEB HHN SCH ×4 (01:49→20:21)
[2017-08-12] MEDS: BLOOD SUGAR DIAGNOSTIC STRIP TEST SCH ×6 (02:04→22:10)
[2017-08-12] MEDS: INSULIN LISPRO 100 UNITS/ML SUBCUT SCH ×6 (02:08→22:41)
[2017-08-12] MEDS: METRONIDAZOLE 500 MG PREMIX 100 ML IV SCH ×3 (03:16→19:59)
[2017-08-12 07:00] LABS: HEMATOCRIT. 33.3 % (42.0-52.0); HEMOGLOBIN. 11.4 g/dL (14.0-18.0); MEAN CORPUSCULAR HEMOGLOBIN 28.8 pg (28.0-32.0); MEAN CORPUSCULAR VOLUME 84.4 fL (80.0-94.0); MEAN PLATELET VOLUME 8.9 fl (7.4-10.4); PLATELET 61 x1000/uL (130-400); RED BLOOD CELL COUNT 3.95 mill/uL (4.7-6.1); RED CELL DISTRIBUTION WIDTH 20.9 % (11.6-14.6)
[2017-08-12 07:31] LABS: CHLORIDE 105 mEq/L (98-107)
[2017-08-12 07:40] LABS: PHOSPHORUS 3.7 mg/dL (2.5-4.9)
[2017-08-12] MEDS: PANTOPRAZOLE SODIUM 40 MG/VIAL IV SCH (09:26)
[2017-08-12] MEDS: ASCORBIC ACID 250 MG TABLET NG SCH ×2 (09:26→16:10)
[2017-08-12] MEDS: ZINC SULFATE 220 MG ( 50 ) CAPSULE NG SCH (09:26)
[2017-08-12] MEDS: INSULIN GLARGINE UD 100 UNITS/ML SYR SUBCUT SCH (09:35)
[2017-08-12 11:06] LABS: PLATELET ESTIMATE DECREASED
[2017-08-12 11:30] LABS: CLARITY URINE CLOUDY (CLEAR); COLOR URINE YELLOW (YELLOW); KETONES URINE NEGATIVE (NEGATIVE); LEUKOCYTE ESTERASE URINE NEGATIVE (NEGATIVE); NITRITE URINE NEGATIVE (NEGATIVE); OCCULT BLOOD URINE TRACE (NEGATIVE); PH URINE 8.5 (4.5-8.0); PROTEIN URINE 1+ (NEGATIVE); SPECIFIC GRAVITY URINE 1.011 (1.005-1.030); UROBILINOGEN URINE 0.2 E.U./dL (0.2-1.0)
[2017-08-12] MEDS: CEFEPIME 2,000 MG in DEXT 5% WATER 100 ML IV SCH (15:16)
[2017-08-12] MEDS: THIAMINE HCL 100MG TABLET PO SCH (15:16)
[2017-08-12] MEDS: DEXTROSE 5% WATER 1,000 ML IV SCH (15:16)
[2017-08-13] VITALS (17 sets, daily range): BP systolic 86–122; BP diastolic 40–74
[2017-08-13] MEDS: IPRATROPIUM/ALBUTEROL 0.5-3(2.5)MG/3ML NEB HHN SCH ×3 (01:12→13:47)
[2017-08-13] MEDS: INSULIN LISPRO 100 UNITS/ML SUBCUT SCH ×5 (01:17→21:02)
[2017-08-13] MEDS: BLOOD SUGAR DIAGNOSTIC STRIP TEST SCH ×5 (01:18→21:03)
[2017-08-13] MEDS: DEXTROSE 5% WATER 1,000 ML IV SCH (01:18)
[2017-08-13] MEDS: METRONIDAZOLE 500 MG PREMIX 100 ML IV SCH ×3 (04:12→19:55)
[2017-08-13 06:30] LABS: PHOSPHORUS 3.1 mg/dL (2.5-4.9)
[2017-08-13 06:35] LABS: HEMATOCRIT. 31.7 % (42.0-52.0); HEMOGLOBIN. 10.8 g/dL (14.0-18.0); MEAN CORPUSCULAR HEMOGLOBIN 28.7 pg (28.0-32.0); MEAN CORPUSCULAR VOLUME 84.2 fL (80.0-94.0); PLATELET 68 x1000/uL (130-400); RED BLOOD CELL COUNT 3.76 mill/uL (4.7-6.1); RED CELL DISTRIBUTION WIDTH 19.7 % (11.6-14.6)
[2017-08-13] MEDS: PANTOPRAZOLE SODIUM 40 MG/VIAL IV SCH (09:28)
[2017-08-13] MEDS: ZINC SULFATE 220 MG ( 50 ) CAPSULE NG SCH (09:28)
[2017-08-13] MEDS: THIAMINE HCL 100MG TABLET PO SCH (09:28)
[2017-08-13] MEDS: ASCORBIC ACID 250 MG TABLET NG SCH ×2 (09:28→17:24)
[2017-08-13] MEDS: GABAPENTIN 100MG CAPSULE PO SCH ×3 (09:42→21:03)
[2017-08-13 10:10] LABS: ATYPICAL LYMPHOCYTES 1; PLATELET ESTIMATE DECREASED
[2017-08-13] MEDS: INSULIN GLARGINE UD 100 UNITS/ML SYR SUBCUT SCH (10:21)
[2017-08-13] MEDS ORDERED: MAGNESIUM 2 G PREMIX 50 ML IV NR (10:30)
[2017-08-13] MEDS ORDERED: COLCHICINE 0.6MG TABLET PO NR (11:30)
[2017-08-13] MEDS ORDERED: DEXTROSE 50% WATER 50ML SYRINGE IV PRN (14:00)
[2017-08-13] MEDS: HYDROCODONE/ACETAMINOPHEN 5/325MG TABLET PO PRN ×3 (14:21→23:57)
[2017-08-13] MEDS: CEFEPIME 2,000 MG in DEXT 5% WATER 100 ML IV SCH (17:24)
[2017-08-14] VITALS: BP 90/53
[2017-08-14] MEDS: METRONIDAZOLE 500 MG PREMIX 100 ML IV SCH ×2 (03:52→12:21)
[2017-08-14 04:00] VITALS: BP 99/60
[2017-08-14] MEDS: HYDROCODONE/ACETAMINOPHEN 5/325MG TABLET PO PRN ×3 (04:51→14:15)
[2017-08-14] MEDS: CEFEPIME 2,000 MG in DEXT 5% WATER 100 ML IV SCH ×2 (05:07→17:24)
[2017-08-14] MEDS: GABAPENTIN 100MG CAPSULE PO SCH ×3 (05:10→21:59)
[2017-08-14] MEDS: BLOOD SUGAR DIAGNOSTIC STRIP TEST SCH ×4 (05:50→20:50)
[2017-08-14] MEDS ORDERED: CEFTRIAXONE 2 G in DEXTROSE 5% WATER 50 ML IV SCH ×4 (06:00)
[2017-08-14] MEDS ORDERED: CEFEPIME 2GM PREMIX 100 ML IV SCH (06:00)
[2017-08-14 06:20] LABS: BASOPHILS % 0.6 % (0.0-2.0); HEMATOCRIT. 34.1 % (42.0-52.0); HEMOGLOBIN. 11.4 g/dL (14.0-18.0); LYMPHOCYTES % 18.2 % (20.0-50.0); MEAN CORPUSCULAR HEMOGLOBIN 28.7 pg (28.0-32.0); MEAN CORPUSCULAR VOLUME 85.4 fL (80.0-94.0); MEAN PLATELET VOLUME 9.6 fl (7.4-10.4); MONOCYTES % 13.4 % (2.0-8.0); NEUTROPHILS % 61.8 % (40.0-76.0); PLATELET 96 x1000/uL (130-400); RED CELL DISTRIBUTION WIDTH 19.3 % (11.6-14.6)
[2017-08-14] MEDS: INSULIN LISPRO 100 UNITS/ML SUBCUT SCH ×4 (06:33→20:52)
[2017-08-14 08:00] VITALS: BP 100/87
[2017-08-14] MEDS: IPRATROPIUM/ALBUTEROL 0.5-3(2.5)MG/3ML NEB HHN SCH ×3 (08:38→20:08)
[2017-08-14] MEDS: PANTOPRAZOLE SODIUM 40 MG/VIAL IV SCH (09:05)
[2017-08-14] MEDS: ASCORBIC ACID 250 MG TABLET NG SCH ×2 (09:05→17:24)
[2017-08-14] MEDS: ZINC SULFATE 220 MG ( 50 ) CAPSULE NG SCH (09:05)
[2017-08-14] MEDS: THIAMINE HCL 100MG TABLET PO SCH (09:05)
[2017-08-14] MEDS: COLCHICINE 0.6MG TABLET PO SCH (09:05)
[2017-08-14] MEDS: INSULIN GLARGINE UD 100 UNITS/ML SYR SUBCUT SCH (10:12)
[2017-08-14 12:00] VITALS: BP 103/65
[2017-08-14 16:00] VITALS: BP 101/59
[2017-08-14 20:00] VITALS: BP 99/58
[2017-08-14] MEDS: METRONIDAZOLE 500MG TABLET PO SCH (20:50)
[2017-08-15] VITALS: BP 95/54
[2017-08-15] MEDS: IPRATROPIUM/ALBUTEROL 0.5-3(2.5)MG/3ML NEB HHN SCH ×4 (01:08→20:09)
[2017-08-15 04:00] VITALS: BP 109/70
[2017-08-15] MEDS: METRONIDAZOLE 500MG TABLET PO SCH ×3 (05:13→21:01)
[2017-08-15] MEDS: GABAPENTIN 100MG CAPSULE PO SCH ×3 (05:13→21:01)
[2017-08-15] MEDS: CEFEPIME 2,000 MG in DEXT 5% WATER 100 ML IV SCH ×2 (05:13→17:44)
[2017-08-15] MEDS: HYDROCODONE/ACETAMINOPHEN 5/325MG TABLET PO PRN ×3 (05:18→17:32)
[2017-08-15] MEDS: BLOOD SUGAR DIAGNOSTIC STRIP TEST SCH ×4 (06:33→21:01)
[2017-08-15] MEDS: INSULIN LISPRO 100 UNITS/ML SUBCUT SCH ×4 (06:34→21:04)
[2017-08-15 06:55] LABS: BASOPHILS % 0.5 % (0.0-2.0); EOSINOPHILS % 2.6 % (0.0-5.0); HEMATOCRIT. 29.5 % (42.0-52.0); HEMOGLOBIN. 10.1 g/dL (14.0-18.0); LYMPHOCYTES % 12.7 % (20.0-50.0); MEAN CORPUSCULAR HEMOGLOBIN 28.9 pg (28.0-32.0); MEAN CORPUSCULAR VOLUME 84.2 fL (80.0-94.0); MEAN PLATELET VOLUME 9.4 fl (7.4-10.4); MONOCYTES % 8.1 % (2.0-8.0); NEUTROPHILS % 76.1 % (40.0-76.0); PLATELET 120 x1000/uL (130-400); RED CELL DISTRIBUTION WIDTH 19.1 % (11.6-14.6)
[2017-08-15 08:17] VITALS: BP 109/70
[2017-08-15 08:29] LABS: CHLORIDE 106 mEq/L (98-107)
[2017-08-15 08:48] LABS: PHOSPHORUS 3.5 mg/dL (2.5-4.9)
[2017-08-15] MEDS: PANTOPRAZOLE SODIUM 40 MG/VIAL IV SCH (09:52)
[2017-08-15] MEDS: COLCHICINE 0.6MG TABLET PO SCH (09:53)
[2017-08-15] MEDS: ASCORBIC ACID 250 MG TABLET NG SCH ×2 (09:53→17:32)
[2017-08-15] MEDS: THIAMINE HCL 100MG TABLET PO SCH (09:53)
[2017-08-15] MEDS: ZINC SULFATE 220 MG ( 50 ) CAPSULE NG SCH (09:53)
[2017-08-15] MEDS: INSULIN GLARGINE UD 100 UNITS/ML SYR SUBCUT SCH (09:54)
[2017-08-15 12:12] VITALS: BP 105/68
[2017-08-15] MEDS ORDERED: MAGNESIUM 2 G PREMIX 50 ML IV SCH (13:30)
[2017-08-15 16:23] VITALS: BP 106/72
[2017-08-15 20:00] VITALS: BP 101/62
[2017-08-15] MEDS: FAMOTIDINE 20MG TABLET PO SCH (21:01)
[2017-08-16] VITALS: BP 104/62
[2017-08-16] MEDS: IPRATROPIUM/ALBUTEROL 0.5-3(2.5)MG/3ML NEB HHN SCH (01:23)
[2017-08-16 04:00] VITALS: BP 111/71
[2017-08-16 05:28] LABS: PHOSPHORUS 3.6 mg/dL (2.5-4.9)
[2017-08-16 05:33] LABS: BASOPHILS % 0.9 % (0.0-2.0); HEMOGLOBIN. 10.9 g/dL (14.0-18.0); LYMPHOCYTES % 20.3 % (20.0-50.0); MEAN CORPUSCULAR HEMOGLOBIN 28.7 pg (28.0-32.0); MEAN CORPUSCULAR VOLUME 84.3 fL (80.0-94.0); MEAN PLATELET VOLUME 9.1 fl (7.4-10.4); NEUTROPHILS % 63.8 % (40.0-76.0); PLATELET 158 x1000/uL (130-400); RED CELL DISTRIBUTION WIDTH 19.5 % (11.6-14.6)
[2017-08-16] MEDS: GABAPENTIN 100MG CAPSULE PO SCH ×2 (05:41→13:18)
[2017-08-16] MEDS: CEFEPIME 2,000 MG in DEXT 5% WATER 100 ML IV SCH (05:41)
[2017-08-16] MEDS: FAMOTIDINE 20MG TABLET PO SCH (05:41)
[2017-08-16] MEDS: METRONIDAZOLE 500MG TABLET PO SCH ×2 (05:41→13:18)
[2017-08-16] MEDS: HYDROCODONE/ACETAMINOPHEN 5/325MG TABLET PO PRN ×2 (05:41→09:54)
[2017-08-16] MEDS: BLOOD SUGAR DIAGNOSTIC STRIP TEST SCH ×3 (06:26→17:05)
[2017-08-16] MEDS: INSULIN LISPRO 100 UNITS/ML SUBCUT SCH ×2 (06:27→12:43)
[2017-08-16 08:33] VITALS: BP 110/74
[2017-08-16] MEDS: ASCORBIC ACID 250 MG TABLET NG SCH (09:45)
[2017-08-16] MEDS: COLCHICINE 0.6MG TABLET PO SCH (09:45)
[2017-08-16] MEDS: ZINC SULFATE 220 MG ( 50 ) CAPSULE NG SCH (09:45)
[2017-08-16] MEDS: THIAMINE HCL 100MG TABLET PO SCH (09:45)
[2017-08-16] MEDS ORDERED: INSULIN GLARGINE UD 100 UNITS/ML SYR SUBCUT SCH (10:00)
[2017-08-16 12:09] VITALS: BP 114/76
[2017-08-16 15:46] VITALS: BP 116/75
[2017-08-16 15:53] VITALS: BP 116/75
== END 2017-08-16 17:25 | disposition home or self-care (01) | DRG 720 ==
LOC: ER 10:07 → CVICU 12:37 → EDBEDREQ 12:41 → ENRESERV 12:48 → 5WST 08-13 15:10
PROVIDERS: ADMIT Internal Medicine; ATTEND Internal Medicine
PROC: 5A1955Z Respiratory Ventilation, Greater than 96 Consecutive Hours (ICD-10-PCS; principal; 2017-08-06)
PROC: 0BH17EZ Insertion of Endotracheal Airway into Trachea, Via Natural or Artificial Opening (ICD-10-PCS; 2017-08-06)
PROC: 02HV33Z Insertion of Infusion Device into Superior Vena Cava, Percutaneous Approach (ICD-10-PCS; 2017-08-06)
PROC: B548ZZA Ultrasonography of Superior Vena Cava, Guidance (ICD-10-PCS; 2017-08-06)
PROC: 02HV33Z Insertion of Infusion Device into Superior Vena Cava, Percutaneous Approach (ICD-10-PCS; 2017-08-06)
PROC: B548ZZA Ultrasonography of Superior Vena Cava, Guidance (ICD-10-PCS; 2017-08-06)
PROC: 5A1D70Z Performance of Urinary Filtration, Intermittent, Less than 6 Hours Per Day (ICD-10-PCS; 2017-08-06)
DX: A41.9 Sepsis, unspecified organism (principal); J96.00 Acute respiratory failure, unspecified whether with hypoxia or hypercapnia; N17.0 Acute kidney failure with tubular necrosis; R65.21 Severe sepsis with septic shock; J69.0 Pneumonitis due to inhalation of food and vomit; G92 Toxic encephalopathy; E11.10 Type 2 diabetes mellitus with ketoacidosis without coma; E87.3 Alkalosis; D64.9 Anemia, unspecified; D69.6 Thrombocytopenia, unspecified; D72.819 Decreased white blood cell count, unspecified; E83.39 Other disorders of phosphorus metabolism; E83.42 Hypomagnesemia; E86.0 Dehydration; E87.6 Hypokalemia; E87.0 Hyperosmolality and hypernatremia; E11.42 Type 2 diabetes mellitus with diabetic polyneuropathy; I50.9 Heart failure, unspecified; L89.90 Pressure ulcer of unspecified site, unspecified stage; N48.1 Balanitis; Z83.3 Family history of diabetes mellitus; Z59.0 Homelessness; Z91.19 Patient's noncompliance with other medical treatment and regimen; Z78.1 Physical restraint status
CPT/HCPCS: 31500; 36415; 36556; 36569; 36600; 51702; 70450; 70551; 71045; 76937; 80048; 80053; 80061; 80305; 81003; 82010; 82140; 82330; 82375; 82550; 82570; 82805; 82962; 83010; 83605; 83615; 83735; 83935; 84100; 84300; 84439; 84443; 84484; 84550; 85025; 85610; 85730; 86022; 86850; 86900; 87040; 87070; 87086; 87106; 92610; 93005; 93306; 94002; 94003; 94640; 96365; 96366; 96367; 96368; 96372; 96375; 96376; 97110; 97116; 97162; 97530; 99291; A6261; C1725; C1752; C9113; G0482; J0610; J0692; J0696; J1642; J1650; J1815; J1940; J1956; J2060; J2250; J2270; J2370; J2543; J2704; J3010; J3370; J3475; J3480; J3490; J7030; J7040; J7042; J7050; J7060; J7070; J7620; P9047